=== PATIENT | female | born 1945 | race Hispanic/Latino ===

== ENCOUNTER → 2022-07-26 | Outpatient (CLI) | payer MEDICARE ==
[~2022-07-26] MED LIST: IOHEXOL 350 MG/ML 100ML INFUS..BTL IV ONE
== END | disposition home or self-care (01) ==
LOC: RAH 07-20 09:41
PROVIDERS: ATTEND Student in an Organized Health Care Education/Training Program
DX: I70.0 Atherosclerosis of aorta (principal); R07.9 Chest pain, unspecified; M47.815 Spondylosis without myelopathy or radiculopathy, thoracolumbar region
CPT/HCPCS: 75574; Q9967